=== PATIENT | female | born 1945 | race Caucasian/White ===

== ENCOUNTER → 2016-07-01 | Outpatient (CLI) | payer MEDICARE, OTHER ==
[~2016-07-01] MED LIST: AMLO2.5T30 PO; CALC-586 PO; MECL50CA PO
--- NOTE | 2016-07-01 09:22 | DI ---
Indication: ITS.REASON: R09.89 Other specified symptoms and signs involvin PROCEDURE: US CAROTID DOPP COMPLETE: TECHNIQUE: Grayscale, color and duplex Doppler imaging was performed of the carotid systems bilaterally. Velocities in cm/sec - validated velocity measurements with angiographic measurements, velocity criteria are extrapolated from diameter data as defined by the Society of Radiologists in Ultrasound Consensus Conference Radiology 2003; 229;340-346. RIGHT: PSV ICA 79.5 EDV ICA 23.7 PSV CCA 94.9 EDV CCA 18 PSV ECA 112 ICA Diameter reduction <20% (0.8-1.0)% LEFT: PSV ICA 77.3 EDV ICA 19.8 PSV CCA 100 EDV CCA 19.9 PSV ECA 124 ICA Diameter reduction <20% (0.8-1.0)% The right vertebral artery is patent with cephalic flow. The left vertebral artery is patent with cephalic flow. Mild scattered atherosclerotic plaque. No velocity elevation. IMPRESSION: No hemodynamically significant carotid stenosis. .
== END ==
LOC: IMA 06:28
PROVIDERS: ATTEND Family Medicine
DX: I65.23 Occlusion and stenosis of bilateral carotid arteries (principal); R09.89 Other specified symptoms and signs involving the circulatory and respiratory systems